=== PATIENT | male | born 1970 | race Caucasian/White ===

== ENCOUNTER 2020-08-29 17:24 | Emergency (ER) | payer OTHER, SELFPAY ==
[2020-08-29] MEDS ORDERED: Lidocaine 1% PF 5 ML VIAL ONE ×2 (17:38→18:11)
[2020-08-29] MEDS ORDERED: AMOXicillin 250 MG CAP ONE (17:38)
[2020-08-29] MEDS ORDERED: HYDROcodone/Acetaminophen 5/325 mg Tablet ONE (17:46)
[2020-08-29] MEDS ORDERED: Ibuprofen 800 MG TAB ONE (17:46)
[2020-08-29] MEDS ORDERED: Bacitracin 1 PK ONE (18:12)
== END 2020-08-29 18:25 | disposition home or self-care (01) ==
LOC: BURERS 17:24
DX: S61.451A Open bite of right hand, initial encounter (principal); S61.411A Laceration without foreign body of right hand, initial encounter; W54.0XXA Bitten by dog, initial encounter
CPT/HCPCS: 12002